=== PATIENT | female | born 1945 | race Caucasian/White ===

== ENCOUNTER 2017-01-17 08:57 | Observation (INO) ==
--- NOTE | 2017-01-17 09:27 | Emergency Department Note ---
Disposition Clinical Impression: TIA (transient ischemic attack) Qualifiers: Transient cerebral ischemia type: unspecified Qualified Code(s): G45.9 - Transient cerebral ischemic attack, unspecified Disposition: Admitted As Inpatient Condition: Good Referrals: Adelaide Brooks CNP [Primary Care Provider] - Forms: ED Satisfaction Letter Time of Disposition: 11:08 Fall HPI - General Chief Complaint: ED Fall Stated Complaint: Fall Time Seen by Provider: 01/17/17 09:04 Source: patient Nursing Notes Reviewed: Yes Vital Signs Reviewed: Yes - History of Present Illness HPI Narrative: 71-year-old female complains of fall. She states she awoken approximately 2 hours prior to arrival, she describes attempting to grab her phone, but states her left hand felt weak and numb. She also states her right hand felt weak. She attempted to get out of bed, but had difficulty walking. She describes gradually falling to the ground. She states her legs felt week but she was able to slide herself over. She describes a down time around 1 hour. She denies any injury to her head, loss of consciousness, near syncopal symptoms. She was able to contact a family member, who had called the squad. Patient states her symptoms were accompanied with some slurred speech. - Related Data Home Medications Medication Instructions Recorded Confirmed Albuterol Sulfate [Albuterol 1 puff IH Q4HR PRN 01/17/17 01/17/17 Inhaler] Calcium Carbonate [Calcium] 500 mg PO BID 01/17/17 01/17/17 Cholecalciferol (D-3) [Vitamin D] 1,000 unit PO BID 01/17/17 01/17/17 Etodolac [Lodine] 400 mg PO DAILY 01/17/17 01/17/17 Lansoprazole [Prevacid] 15 mg PO BID 01/17/17 01/17/17 Mv,Iron,Min/Folic Acid/Biotin 1 each PO BID 01/17/17 01/17/17 [Hair Formula Tablet] Oxygen 2 l NS AD 01/17/17 01/17/17 metroNIDAZOLE [Flagyl] 500 mg PO BID 01/17/17 01/17/17 Allergies Allergy/AdvReac Type Severity Reaction Status Date / Time Penicillins [PCN] Allergy Hives Verified 01/17/17 09:02 albuterol AdvReac Difficulty Verified 01/17/17 09:02 Breathing ciprofloxacin [From Cipro] AdvReac neuropathy Verified 01/17/17 11:05 codeine AdvReac See Verified 01/17/17 11:05 Comments pregabalin [From Lyrica] AdvReac See Verified 01/17/17 11:05 Comments Sulfa (Sulfonamide AdvReac Swelling Verified 01/17/17 09:02 Antibiotics) of Lip/Tongue/Throat All systems ED: reviewed and negative except as stated. Constitutional: Denies: fever, chills Eyes: Denies: eye discharge ENT ED: Denies: throat pain Cardiovascular: Denies: chest pain, palpitations Respiratory: Denies: dyspnea, wheezes Gastrointestinal: Denies: abdominal pain, nausea, vomiting Genitourinary: Denies: dysuria Musculoskeletal: Reports: as per HPI. Denies: back pain, neck pain Neurological: Denies: as per HPI Psychiatric: Denies: anxiety, depression Endocrine: Denies: fatigue Hematological/Lymphatic: Denies: easy bleeding Allergic/Immunologic: Denies: facial swelling Fall PMH - Past Medical History Medical history: Reports: COPD, GERD Psychiatric history: Reports: anxiety, depression [employer] history: Reports: bilateral tubal ligation - Social History Smoking Status: Current every day smoker Alcohol use: Reports: none Drug use: Reports: none Physical Exam - General Limitations: no limitations General appearance: alert, in no apparent distress - Head Head exam: atraumatic, normocephalic - Eye Eye exam: Present: normal appearance, EOMI, conjunctival injection - ENT ENT exam: normal exam, normal oropharynx, normal external ear exam - Neck Neck exam: Present: normal inspection, full ROM. Absent: tenderness - Chest Chest inspection: Present: normal inspection, symmetric chest wall rise - Respiratory Respiratory exam: Present: normal lung sounds bilaterally. Absent: respiratory distress - Cardiovascular Cardiovascular exam: Present: regular rate, normal rhythm - Abdominal Exam Abdominal exam: Present: soft, Non-Tender - Extremities Exam Extremities exam: Present: full ROM, normal capillary refill. Absent: tenderness, pedal edema, joint swelling - Expanded Lower Extremity Exam Knee exam: Present: abrasion Neurovascular/Tendon exam: Present: normal capillary refill, normal fine/light touch. Absent: pulse deficit Gait: not tested/not observed - Back Exam Back exam: Present: normal inspection, full ROM. Absent: tenderness - Neurological Exam Neurological exam: Present: alert, oriented X3 - Expanded Neurological Exam Patient oriented to: Present: person, place, time Speech: Present: fluid speech Cranial nerves: EOM function (II, III, IV, ): Normal, facial sensation (V): Normal, facial palsy (VII): Normal, gag reflex (IX): Normal, spinal accessory function (XI): Normal, tongue deviation (XII): Normal Cerebellar function: finger to nose: Normal, heel to pires: Normal Motor strength - LUE: 5/5 Motor strength - RUE: 5/5 Motor strength - LLE: 5/5 Motor strength - RLE: 5/5 Upper motor neuron exam: pronator drift: Absent bilaterally, sensory extinction : Absent bilaterally Sensory exam upper extremity: light touch: Normal, pin prick: Normal Sensory exam lower extremity: light touch: Normal, pin prick: Normal Spinal cord function: Absent: saddle anesthesia Coma Scale Eye Opening: Spontaneous Coma Scale Motor Response: Obeys Commands Coma Scale Verbal Response: Oriented Coma Scale Total: 15 - Psychiatric Psychiatric exam: Present: normal affect, normal mood - Skin Skin exam: Present: warm, dry, intact, normal color. Absent: rash, cyanosis, diaphoresis Course Course Narrative: 71-year-old female arrives via squad from home with reported fall, and reported left-sided numbness and weakness, tremor also accompanied with some slurred speech. Patient seen and examined. She states her symptoms are improving. She also mentions recent antibiotic use. Her PCP for a possible UTI or vaginal infection. On examination, she has no facial asymmetry, speech normal. No gross focal neurological deficits. Good strength in all 4 extremities, no sensory deficits in extremities or face, no facial weakness, no pronator drift, finger to nose testing and [id number] testing normal. Workup initiated. Discussed patient with Dr. Torres, who agreed with CT scan, possible TIA, decision to place. - Reevaluation(s) Reevaluation #1: Labs and head CT unremarkable. Pt continues to be asymptomatic. Urine pending. Discussed and reviewed work up with Dr. Torres, who advised admission. Time: 10:55 Reevaluation #2: Pt discussed with and accepted by hospitalist Dr. Narvaez. Time: 10:59 Vital Signs Temperature 97.8 F 01/17/17 09:02 Pulse Rate 84 01/17/17 09:02 Respiratory Rate 16 06/21/17 09:02 Blood Pressure 113/54 01/17/17 09:02 O2 Sat by Pulse Oximetry 98 01/17/17 09:02 Temperature 97.8 F 01/17/17 09:02 Pulse Rate 75 01/17/17 12:03 Respiratory Rate 16 01/17/17 12:03 Blood Pressure 101/43 01/17/17 12:03 O2 Sat by Pulse Oximetry 99 01/17/17 12:03 Oxygen Delivery Oxygen Delivery Nasal Cannula Fall - MDM Narrative Medical decision making narrative: Patient is a 71-year-old female that presented with complaints of a fall, which she described as being caused by weakness. She described her left hand feeling numb and weak, her right hand feeling numb, and weakness in her legs. She had described gradually falling to the ground immediately after attempting to get out of bed. Patient denied any near syncopal symptoms, loss of consciousness, injury to her head or neck. On examination she is alert and oriented 3, head and face atraumatic, no cervical thoracic or lumbar pain. She had no gross focal neurological deficits, facial asymmetry, speech changes. I saw no concerning signs for stroke. Vitals are stable. I did discuss patient with Dr. Cantu who did see patient, and advised for admission for possible TIA. Patient was discussed with hospitalist who agreed to accept patient. Chest X-Ray 01/17/17 09:26 IMPRESSION: No acute process. Emphysematous change. D/ / Per Gaston MD / Per Gaston MD Interpreting Provider: Per Gaston MD Head CT 01/17/17 09:45 IMPRESSION: No acute intracranial abnormality. Mild chronic small vessel ischemic changes. D/ / 01/17/2017 11:01:22 Petra Peoples MD / [place] Interpreting Provider: Petra Peoples MD All Lab Results (24 Hours) 01/17/17 01/17/17 01/17/17 Range/Units 09:40 09:40 09:40 WBC 9.3 (4.3-11.1) K/mcL RBC 4.26 (3.82-4.97) M/mcL Hgb 11.6 (11.5-15.4) g/dL Hct 37.2 (35.3-44.9) % MCV 87.3 (83.0-100.0) fL MCH 27.2 L (28.0-33.3) pg MCHC 31.2 L (31.6-35.5) g/dL RDW 13.1 (11.5-14.5) % Plt Count 217 (140-400) K/mcL MPV 11.2 (9.4-12.4) fL Immature Gran % 0.3 (0-4) % Seg Neutrophils % 62.2 % Lymphocytes % 27.1 % Monocytes % 7.2 % Eosinophils % 2.6 % Basophils % 0.6 % Neutrophils # 5.8 (1.6-8.9) K/mcL Lymphocytes # 2.5 (0.6-4.6) K/mcL Monocytes # 0.7 (0.0-1.3) K/mcL Eosinophils # 0.2 (0.0-0.6) K/mcL Basophils # 0.1 (0.0-0.2) K/mcL Immature Plt Fraction 8.3 H (1.1-6.1) % PT 12.6 H (9.4-12.1) Seconds INR 1.2 APTT 30.7 (26.0-36.0) Seconds Sodium 140 (136-145) mEq/L Potassium 4.6 H (3.5-4.5) mEq/L Chloride 107 (98-109) mEq/L Carbon Dioxide 27 (19-29) mEq/L BUN 11 (7-20) mg/dL Creatinine 0.78 (0.57-1.11) mg/dL Est GFR ( Amer) > 60 (> 60) Est GFR (Non-Af Amer) > 60 (> 60) BUN/Creatinine Ratio 14 (6-26) Glucose 102 H (70-99) mg/dL Calculated Osmolality 290 (280-300) Calcium 8.6 (8.6-10.8) mg/dL Creatine Kinase 54 (29-168) Units/L Troponin I (0-0.03) ng/mL Urine Color (Yellow) Urine Clarity (Clear) Urine pH (5.0-8.0) pH Units Ur Specific [place] (1.010-1.025) Urine Protein (Neg-Trace) mg/dL Urine Glucose (UA) (Normal) mg/dL Urine Ketones (Negative) mg/dL Urine Blood (Negative) Urine Nitrite (Negative) Urine Bilirubin (Negative) Urine Urobilinogen (Normal) mg/dL Ur Leukocyte Esterase (Negative) Ur Culture Indicated? (NO) 01/17/17 01/17/17 Range/Units 09:40 10:45 WBC (4.3-11.1) K/mcL RBC (3.82-4.97) M/mcL Hgb (11.5-15.4) g/dL Hct (35.3-44.9) % MCV (83.0-100.0) fL MCH (28.0-33.3) pg MCHC (31.6-35.5) g/dL RDW (11.5-14.5) % Plt Count (140-400) K/mcL MPV (9.4-12.4) fL Immature Gran % (0-4) % Seg Neutrophils % % Lymphocytes % % Monocytes % % Eosinophils % % Basophils % % Neutrophils # (1.6-8.9) K/mcL Lymphocytes # (0.6-4.6) K/mcL Monocytes # (0.0-1.3) K/mcL Eosinophils # (0.0-0.6) K/mcL Basophils # (0.0-0.2) K/mcL Immature Plt Fraction (1.1-6.1) % PT (9.4-12.1) Seconds INR APTT (26.0-36.0) Seconds Sodium (136-145) mEq/L Potassium (3.5-4.5) mEq/L Chloride (98-109) mEq/L Carbon Dioxide (19-29) mEq/L BUN (7-20) mg/dL Creatinine (0.57-1.11) mg/dL Est GFR ( Amer) (> 60) Est GFR (Non-Af Amer) (> 60) BUN/Creatinine Ratio (6-26) Glucose (70-99) mg/dL Calculated Osmolality (280-300) Calcium (8.6-10.8) mg/dL Creatine Kinase (29-168) Units/L Troponin I 0.01 (0-0.03) ng/mL Urine Color Yellow (Yellow) Urine Clarity Clear (Clear) Urine pH 6.5 (5.0-8.0) pH Units Ur Specific [place] 1.011 (1.010-1.025) Urine Protein Negative (Neg-Trace) mg/dL Urine Glucose (UA) Normal (Normal) mg/dL Urine Ketones Negative (Negative) mg/dL Urine Blood Negative (Negative) Urine Nitrite Negative (Negative) Urine Bilirubin Negative (Negative) Urine Urobilinogen Normal (Normal) mg/dL Ur Leukocyte Esterase Negative (Negative) Ur Culture Indicated? NO (NO) All Lab Results (24 Hours) 01/17/17 01/17/17 01/17/17 Range/Units 09:40 09:40 09:40 WBC 9.3 (4.3-11.1) K/mcL RBC 4.26 (3.82-4.97) M/mcL Hgb 11.6 (11.5-15.4) g/dL Hct 37.2 (35.3-44.9) % MCV 87.3 (83.0-100.0) fL MCH 27.2 L (28.0-33.3) pg MCHC 31.2 L (31.6-35.5) g/dL RDW 13.1 (11.5-14.5) % Plt Count 217 (140-400) K/mcL MPV 11.2 (9.4-12.4) fL Immature Gran % 0.3 (0-4) % Seg Neutrophils % 62.2 % Lymphocytes % 27.1 % Monocytes % 7.2 % Eosinophils % 2.6 % Basophils % 0.6 % Neutrophils # 5.8 (1.6-8.9) K/mcL Lymphocytes # 2.5 (0.6-4.6) K/mcL Monocytes # 0.7 (0.0-1.3) K/mcL Eosinophils # 0.2 (0.0-0.6) K/mcL Basophils # 0.1 (0.0-0.2) K/mcL Immature Plt Fraction 8.3 H (1.1-6.1) % PT 12.6 H (9.4-12.1) Seconds INR 1.2 APTT 30.7 (26.0-36.0) Seconds Sodium 140 (136-145) mEq/L Potassium 4.6 H (3.5-4.5) mEq/L Chloride 107 (98-109) mEq/L Carbon Dioxide 27 (19-29) mEq/L BUN 11 (7-20) mg/dL Creatinine 0.78 (0.57-1.11) mg/dL Est GFR ( Amer) > 60 (> 60) Est GFR (Non-Af Amer) > 60 (> 60) BUN/Creatinine Ratio 14 (6-26) Glucose 102 H (70-99) mg/dL Calculated Osmolality 290 (280-300) Calcium 8.6 (8.6-10.8) mg/dL Creatine Kinase 54 (29-168) Units/L Troponin I (0-0.03) ng/mL Urine Color (Yellow) Urine Clarity (Clear) Urine pH (5.0-8.0) pH Units Ur Specific [place] (1.010-1.025) Urine Protein (Neg-Trace) mg/dL Urine Glucose (UA) (Normal) mg/dL Urine Ketones (Negative) mg/dL Urine Blood (Negative) Urine Nitrite (Negative) Urine Bilirubin (Negative) Urine Urobilinogen (Normal) mg/dL Ur Leukocyte Esterase (Negative) Ur Culture Indicated? (NO) 01/17/17 01/17/17 Range/Units 09:40 10:45 WBC (4.3-11.1) K/mcL RBC (3.82-4.97) M/mcL Hgb (11.5-15.4) g/dL Hct (35.3-44.9) % MCV (83.0-100.0) fL MCH (28.0-33.3) pg MCHC (31.6-35.5) g/dL RDW (11.5-14.5) % Plt Count (140-400) K/mcL MPV (9.4-12.4) fL Immature Gran % (0-4) % Seg Neutrophils % % Lymphocytes % % Monocytes % % Eosinophils % % Basophils % % Neutrophils # (1.6-8.9) K/mcL Lymphocytes # (0.6-4.6) K/mcL Monocytes # (0.0-1.3) K/mcL Eosinophils # (0.0-0.6) K/mcL Basophils # (0.0-0.2) K/mcL Immature Plt Fraction (1.1-6.1) % PT (9.4-12.1) Seconds INR APTT (26.0-36.0) Seconds Sodium (136-145) mEq/L Potassium (3.5-4.5) mEq/L Chloride (98-109) mEq/L Carbon Dioxide (19-29) mEq/L BUN (7-20) mg/dL Creatinine (0.57-1.11) mg/dL Est GFR ( Amer) (> 60) Est GFR (Non-Af Amer) (> 60) BUN/Creatinine Ratio (6-26) Glucose (70-99) mg/dL Calculated Osmolality (280-300) Calcium (8.6-10.8) mg/dL Creatine Kinase (29-168) Units/L Troponin I 0.01 (0-0.03) ng/mL Urine Color Yellow (Yellow) Urine Clarity Clear (Clear) Urine pH 6.5 (5.0-8.0) pH Units Ur Specific [place] 1.011 (1.010-1.025) Urine Protein Negative (Neg-Trace) mg/dL Urine Glucose (UA) Normal (Normal) mg/dL Urine Ketones Negative (Negative) mg/dL Urine Blood Negative (Negative) Urine Nitrite Negative (Negative) Urine Bilirubin Negative (Negative) Urine Urobilinogen Normal (Normal) mg/dL Ur Leukocyte Esterase Negative (Negative) Ur Culture Indicated? NO (NO) - Lab Data Lab results reviewed: Yes I reviewed the patient's lab results. Result diagrams: 01/17/17 09:40 01/17/17 09:40 Lab Results 01/17/17 01/17/17 01/17/17 Range/Units 09:40 09:40 09:40 WBC 9.3 (4.3-11.1) K/mcL RBC 4.26 (3.82-4.97) M/mcL Hgb 11.6 (11.5-15.4) g/dL Hct 37.2 (35.3-44.9) % MCV 87.3 (83.0-100.0) fL MCH 27.2 L (28.0-33.3) pg MCHC 31.2 L (31.6-35.5) g/dL RDW 13.1 (11.5-14.5) % Plt Count 217 (140-400) K/mcL MPV 11.2 (9.4-12.4) fL Immature Gran % 0.3 (0-4) % Seg Neutrophils % 62.2 % Lymphocytes % 27.1 % Monocytes % 7.2 % Eosinophils % 2.6 % Basophils % 0.6 % Neutrophils # 5.8 (1.6-8.9) K/mcL Lymphocytes # 2.5 (0.6-4.6) K/mcL Monocytes # 0.7 (0.0-1.3) K/mcL Eosinophils # 0.2 (0.0-0.6) K/mcL Basophils # 0.1 (0.0-0.2) K/mcL Immature Plt Fraction 8.3 H (1.1-6.1) % PT 12.6 H (9.4-12.1) Seconds INR 1.2 APTT 30.7 (26.0-36.0) Seconds Sodium 140 (136-145) mEq/L Potassium 4.6 H (3.5-4.5) mEq/L Chloride 107 (98-109) mEq/L Carbon Dioxide 27 (19-29) mEq/L BUN 11 (7-20) mg/dL Creatinine 0.78 (0.57-1.11) mg/dL Est GFR ( Amer) > 60 (> 60) Est GFR (Non-Af Amer) > 60 (> 60) BUN/Creatinine Ratio 14 (6-26) Glucose 102 H (70-99) mg/dL Calculated Osmolality 290 (280-300) Calcium 8.6 (8.6-10.8) mg/dL Creatine Kinase 54 (29-168) Units/L Troponin I (0-0.03) ng/mL Urine Color (Yellow) Urine Clarity (Clear) Urine pH (5.0-8.0) pH Units Ur Specific [place] (1.010-1.025) Urine Protein (Neg-Trace) mg/dL Urine Glucose (UA) (Normal) mg/dL Urine Ketones (Negative) mg/dL Urine Blood (Negative) Urine Nitrite (Negative) Urine Bilirubin (Negative) Urine Urobilinogen (Normal) mg/dL Ur Leukocyte Esterase (Negative) Ur Culture Indicated? (NO) 01/17/17 01/17/17 Range/Units 09:40 10:45 WBC (4.3-11.1) K/mcL RBC (3.82-4.97) M/mcL Hgb (11.5-15.4) g/dL Hct (35.3-44.9) % MCV (83.0-100.0) fL MCH (28.0-33.3) pg MCHC (31.6-35.5) g/dL RDW (11.5-14.5) % Plt Count (140-400) K/mcL MPV (9.4-12.4) fL Immature Gran % (0-4) % Seg Neutrophils % % Lymphocytes % % Monocytes % % Eosinophils % % Basophils % % Neutrophils # (1.6-8.9) K/mcL Lymphocytes # (0.6-4.6) K/mcL Monocytes # (0.0-1.3) K/mcL Eosinophils # (0.0-0.6) K/mcL Basophils # (0.0-0.2) K/mcL Immature Plt Fraction (1.1-6.1) % PT (9.4-12.1) Seconds INR APTT (26.0-36.0) Seconds Sodium (136-145) mEq/L Potassium (3.5-4.5) mEq/L Chloride (98-109) mEq/L Carbon Dioxide (19-29) mEq/L BUN (7-20) mg/dL Creatinine (0.57-1.11) mg/dL Est GFR ( Amer) (> 60) Est GFR (Non-Af Amer) (> 60) BUN/Creatinine Ratio (6-26) Glucose (70-99) mg/dL Calculated Osmolality (280-300) Calcium (8.6-10.8) mg/dL Creatine Kinase (29-168) Units/L Troponin I 0.01 (0-0.03) ng/mL Urine Color Yellow (Yellow) Urine Clarity Clear (Clear) Urine pH 6.5 (5.0-8.0) pH Units Ur Specific [place] 1.011 (1.010-1.025) Urine Protein Negative (Neg-Trace) mg/dL Urine Glucose (UA) Normal (Normal) mg/dL Urine Ketones Negative (Negative) mg/dL Urine Blood Negative (Negative) Urine Nitrite Negative (Negative) Urine Bilirubin Negative (Negative) Urine Urobilinogen Normal (Normal) mg/dL Ur Leukocyte Esterase Negative (Negative) Ur Culture Indicated? NO (NO) - Radiology Data Radiology results reviewed: Yes I reviewed the patient's radiology results. Emphysematous changes, otherwise no acute cardiopulmonary concerns - EKG Data EKG attestation: Yes I reviewed and interpreted this EKG. EKG results narrative: Sinus rhythm, normal EKG, no ST changes, or signs of acute ischemia
[2017-01-17 09:55] LABS: Basophils # 0.1 K/mcL (0.0-0.2); Basophils % 0.6 %; Eosinophils # 0.2 K/mcL (0.0-0.6); Eosinophils % 2.6 %; Hematocrit 37.2 % (35.3-44.9); Hemoglobin 11.6 g/dL (11.5-15.4); Immature Granulocytes % 0.3 % (0-4); Immature Platelets 8.3 % (1.1-6.1); Lymphocytes # 2.5 K/mcL (0.6-4.6); Lymphocytes % 27.1 %; Mean Corpuscular HGB Conc 31.2 g/dL (31.6-35.5); Mean Corpuscular Hemoglobin 27.2 pg (28.0-33.3); Mean Corpuscular Volume 87.3 fL (83.0-100.0); Mean Platelet Volume 11.2 fL (9.4-12.4); Monocytes # 0.7 K/mcL (0.0-1.3); Monocytes % 7.2 %; Neutrophils # 5.8 K/mcL (1.6-8.9); Platelet Count 217 K/mcL (140-400); Red Blood Count 4.26 M/mcL (3.82-4.97); Red Cell Distribution Width 13.1 % (11.5-14.5); Segmented Neutrophils % 62.2 %
[2017-01-17 09:59] LABS: INR 1.2; Prothrombin Time 12.6 Seconds (9.4-12.1)
[2017-01-17 10:01] LABS: Activated Partial Thrombo Time 30.7 Seconds (26.0-36.0)
[2017-01-17 10:06] LABS: BUN/Creatinine Ratio 14 (6-26); Blood Urea Nitrogen 11 mg/dL (7-20); Calcium 8.6 mg/dL (8.6-10.8); Carbon Dioxide 27 mEq/L (19-29); Chloride 107 mEq/L (98-109); Creatine Kinase 54 Units/L (29-168); Glucose 102 mg/dL (70-99); Osmolality,Calculated 290 (280-300); Potassium 4.6 mEq/L (3.5-4.5); Sodium 140 mEq/L (136-145); eGFR For African Americans > 60 (> 60); eGFR For Non-African Americans > 60 (> 60)
[2017-01-17 10:54] LABS: Bilirubin,Urine Negative (Negative); Blood,Urine Negative (Negative); Color,Urine Yellow (Yellow); Glucose,Urine (UA) Normal (Normal); Ketones,Urine Negative (Negative); Leukocyte Esterase,Urine Negative (Negative); Nitrite,Urine Negative (Negative); PH,Urine 6.5 pH Units (5.0-8.0); Protein,Urine Negative (Neg-Trace); Specific Gravity,Urine 1.011 (1.010-1.025); Urobilinogen,Urine Normal (Normal)
[2017-01-17 11:07] LABS: Clarity,Urine Clear (Clear)
[2017-01-17] MEDS ORDERED: Naloxone 0.4 MG/ML INJ IVP PRN (12:03)
[2017-01-17] MEDS ORDERED: Acetaminophen 325 MG TABLET PO PRN (12:03)
[2017-01-17] MEDS ORDERED: Aspirin 325 MG TABLET PO ONE (12:07)
--- NOTE | 2017-01-17 12:15 | Internal Med History&Physical ---
<Perez,Donna J - Last Filed: 01/17/17 12:11> Date of Encounter: 01/17/17 Time of Encounter: 12:11 Assessment and Plan (1) Paresthesia of arm Current visit: Yes Status: Acute To left hand that started on day of admission, unable to grasp phone. Symptoms improving in the ED, still with subtle left hand weakness. Head CT negative. Concerned for possible TIA, start ASA now in the ED. Brain MRI, echo, bilateral carotid Dopplers pending. Lipid panel, Hgb A1c, and TSH pending Consult neurology if needed. (2) Fall Current visit: Yes Status: Acute On day of admission. Denies hitting head. No evidence of tongue biting, denies loss of bowel or bladder incontinence. Head CT negative. Etiology unknown at this time. Brain MRI, echo, carotid Dopplers pending. Check orthostatic BPs Qualifiers: Encounter type: initial encounter Qualified Code(s): W19.XXXA - Unspecified fall, initial encounter (3) Murmur Current visit: Yes Status: Acute Noted on exam, echo pending. Consult cardiology if needed. (4) Bacterial vaginitis Current visit: Yes Status: Acute Recently diagnosed per PCP. Continue home Flagyl 500 mg twice a day for total of 7 days (stop date after last dose on 01/17/17) (5) COPD (chronic obstructive pulmonary disease) Current visit: Yes Status: Acute Per history, on home O2 PRN. Current smoker, cessation advised. Nicotine replacement while inpatient. Continue home inhaler, O2 PRN Qualifiers: COPD type: unspecified COPD Qualified Code(s): J44.9 - Chronic obstructive pulmonary disease, unspecified (6) DVT prophylaxis Current visit: Yes Status: Acute Heparin Internal Medicine - H&P: HPI Chief complaint: fall and left hand weakness Admitted From: Home History of present illness: Ms. Panchal is a 71 year old female with past medical history COPD who presented to [facility] on 01/17/2017 after falling at home with complaint of left hand weakness. She was placed in observation status for CVA workup. Information obtained from chart review and patient report. Patient says she woke up this morning and twas unable to grasp per phone with her left hand. Says left hand was weak, denies numbness or tingling. She then proceeded to get out of bed and fell says her legs are weak and gave out on her. Denies hitting head. No headache or vision changes. Says she feels better now, but still weak and tired. No chest pain no shortness of breath no abdominal pain. Past Med Surg Social Fam HX - Past Medical History Medical history: COPD, GERD Psychiatric history: anxiety, depression - Past Surgical History Surgical History: non-contributory - Social History Smoking Status: Current every day smoker Smokeless Tobacco Status: No Alcohol use: none Drug use: none - Additional Family History Additional family history: Reviewed and noncontributory Internal Medicine - H&P: Meds Albuterol Sulfate [Albuterol Inhaler] 1 puff IH Q4HR PRN 01/17/17 [History] Calcium Carbonate [Calcium] 500 mg PO BID 01/17/17 [History] Cholecalciferol (D-3) [Vitamin D] 1,000 unit PO BID 01/17/17 [History] Etodolac [Lodine] 400 mg PO DAILY 01/17/17 [History] Lansoprazole [Prevacid] 15 mg PO BID 01/17/17 [History] Mv,Iron,Min/Folic Acid/Biotin [Hair Formula Tablet] 1 each PO BID 01/17/17 [ History] Oxygen 2 l NS AD 01/17/17 [History] metroNIDAZOLE [Flagyl] 500 mg PO BID 01/17/17 [History] Allergies Penicillins [PCN] Allergy (Verified 01/17/17 09:02) Hives albuterol Adverse Reaction (Verified 01/17/17 09:02) Difficulty Breathing ciprofloxacin [From Cipro] Adverse Reaction (Verified 01/17/17 11:05) neuropathy codeine Adverse Reaction (Verified 01/17/17 11:05) See Comments jittery and wired pregabalin [From Lyrica] Adverse Reaction (Verified 01/17/17 11:05) See Comments had a seizure Sulfa (Sulfonamide Antibiotics) Adverse Reaction (Verified 01/17/17 09:02) Swelling of Lip/Tongue/Throat All Systems PM: A 10-system review of systems was performed and is negative for pertinent findings except as documented above in the HPI. - Constitutional Constitutional: weakness, no chills, no fever(s), no night sweats - EENT Eyes: no change in vision, no discharge, no pain, no photophobia Ears: no ear discharge, no ear pain, no tinnitus Nose, mouth and throat: no dysphagia, no nasal discharge, no neck pain, no sore throat - Cardiovascular Cardiovascular ROS IM: no chest pain, no diaphoresis, no dyspnea, no lightheadedness, no palpitations, no syncope - Respiratory Respiratory: no cough, no dyspnea, no wheezing, no excessive phlegm production - Gastrointestinal Gastrointestinal: no abdominal pain, no diarrhea, no hematemesis, no hematochezia, no melena, no nausea, no vomiting - Genitourinary Genitourinary: no change in urinary stream, no dysuria, no flank pain, no hematuria - Musculoskeletal Musculoskeletal ROS IM: no numbness, no tingling - Integumentary Integumentary IM: no rash, no unusual bruising - Neurological Neurological ROS: abnormal gait, paresthesias, no confusion, no convulsions, no focal weakness, no numbness, no tingling, no tremor(s) - Hematologic/Lymphatic Hematologic/Lymphatic: no easy bruising - Constitutional Vitals: Temp Pulse Resp BP Pulse Ox 97.8 F 75 16 101/43 99 01/17/17 09:02 01/17/17 12:03 01/17/17 12:03 01/17/17 12:03 01/17/17 12:03 General appearance: Present: A&O X 3, no acute distress - Head Head exam: Present: atraumatic, normocephalic - Eye Eye exam: Present: PERRL, conjuntiva pink, sclera anicteric Pupils: Present: PERRL - Neck Neck exam general surgery: Present: supple, trachea midline. Absent: lymphadenopathy - Respiratory Respiratory exam: Present: CTAB. Absent: accessory muscle use, rales, rhonchi, wheezes - Cardiovascular Cardiovascular exam: Present: RRR, +S1, +S2, systolic murmur. Absent: diastolic murmur, gallop, rubs - GI/Abdominal GI/Abdominal exam: Present: normal bowel sounds, soft, no peritoneal signs. Absent: distended, tenderness - Extremities Exam Extremities exam: Present: warm, radial pulses palpable and symetrical. Absent : calf tenderness, cyanotic, pedal edema - Neurological Exam Neurological exam: Present: CN II-XII intact, oriented X3, no focal deficits. Absent: strengths equal and symetr throughout, pronater drift, facial droop, speech deficit Additional comments: Left hand weakness, strength 4/5 - Skin Skin exam: Present: dry, intact Internal Med - H&P Results - Labs CBC & Chem 7: 01/17/17 09:40 01/17/17 09:40 Labs: Short CBC 01/17/17 Range/Units 09:40 WBC 9.3 (4.3-11.1) K/mcL Hgb 11.6 (11.5-15.4) g/dL Hct 37.2 (35.3-44.9) % Plt Count 217 (140-400) K/mcL Neutrophils # 5.8 (1.6-8.9) K/mcL BMP 01/17/17 09:40 Sodium 140 Potassium 4.6 H Chloride 107 Carbon Dioxide 27 BUN 11 Creatinine 0.78 Glucose 102 H Calcium 8.6 Cardiac Enzymes 01/17/17 Range/Units 09:40 Troponin I 0.01 (0-0.03) ng/mL Urine 01/17/17 Range/Units 10:45 Urine Color Yellow (Yellow) Urine Clarity Clear (Clear) Urine pH 6.5 (5.0-8.0) pH Units Ur Specific [place] 1.011 (1.010-1.025) Urine Protein Negative (Neg-Trace) mg/dL Urine Glucose (UA) Normal (Normal) mg/dL - Impressions ITS Impressions Chest X-Ray 01/17/17 09:26 IMPRESSION: No acute process. Emphysematous change. D/ / Per Gaston MD / Per Gaston MD Interpreting Provider: Per Gaston MD Head CT 01/17/17 09:45 IMPRESSION: No acute intracranial abnormality. Mild chronic small vessel ischemic changes. D/ / 01/17/2017 11:01:22 Petra Peoples MD / [place] Interpreting Provider: Petra Peoples MD <Priscilla Narvaez - Last Filed: 01/17/17 19:11> Date of Encounter: 01/17/17 Time of Encounter: 15:45 Internal Medicine - H&P: HPI History of present illness: Ms. Panchal is a 71 year old female Past Med Surg Social Fam HX - Family History Daughter History Unknown: Yes Family Member Ethnicity: Non- Living Status: Still Living Hx Family Cardiac Disorders: No Hx Family Respiratory Disorders: Yes Hx Family Cancer: No Hx Family GI Disorders: Yes (Gallbladder, diverticulitis) All Systems PM: A 10-system review of systems was performed and is negative for pertinent findings except as documented above in the HPI. - Constitutional Vitals: Temp Pulse Resp BP Pulse Ox 97.8 F 73 16 112/65 99 01/17/17 14:39 01/17/17 14:50 01/17/17 14:50 01/17/17 14:50 01/17/17 14:50 Internal Med - H&P Results - Labs CBC & Chem 7: 01/17/17 09:40 01/17/17 09:40 - Attending Attestation I examined this patient and my medical decision-making was reviewed with the nurse practitioner. I agree with the documented history of present illness, review of systems, past medical, surgical social and family histories and examination findings, disposition and treatment plan as described above except to any changes set forth below. Patient relates a history of COPD, GERD presented with some left arm paresthesia and lower extremity weakness. We will observe in hospital and workup for possible TIA. MRI of the brain. Carotid Dopplers. 2-D echocardiogram. Monitor vital signs and neuro checks.
[2017-01-17] MEDS: Nicotine 21 MG PATCH.TD24 TD SCH (12:16)
[2017-01-17] MEDS ORDERED: *HR* Heparin 5,000 UNIT/ML VIAL SQ ONE (12:26)
[2017-01-17] MEDS: metroNIDAZOLE 500 MG TABLET PO SCH ×2 (15:44→21:31)
--- NOTE | 2017-01-17 18:03 | Electrocardiograph Report ---
[place] [id number] Test Date: 2017-01-17 Pat Name: Aria Panchal Department: 105 Room: [facility] Gender: F Enrollment Consultant: : 1945 Requested By: Sudeep Hercules Order Number: [id number] Reading MD: Kashif Rowe MD Measurements Intervals [place] Rate: 82 P: 61 TX: 141 QRS: 69 QRSD: 81 T: 64 QT: 372 QTc: 411 Interpretive Statements SINUS RHYTHM Electronically Signed On 01-17-2017 18:02:11 EDT by Kashif Rowe MD
[2017-01-17] MEDS ORDERED: Nicotine 21 MG PATCH.TD24 TD STA (21:21)
[2017-01-18 05:21] LABS: Basophils # 0.1 K/mcL (0.0-0.2); Basophils % 0.7 %; Eosinophils # 0.3 K/mcL (0.0-0.6); Eosinophils % 3.1 %; Hematocrit 34.3 % (35.3-44.9); Immature Granulocytes % 0.2 % (0-4); Lymphocytes # 3.2 K/mcL (0.6-4.6); Lymphocytes % 35.5 %; Mean Corpuscular HGB Conc 32.1 g/dL (31.6-35.5); Mean Corpuscular Hemoglobin 27.8 pg (28.0-33.3); Mean Corpuscular Volume 86.8 fL (83.0-100.0); Mean Platelet Volume 11.7 fL (9.4-12.4); Monocytes # 0.7 K/mcL (0.0-1.3); Monocytes % 7.7 %; Neutrophils # 4.8 K/mcL (1.6-8.9); Platelet Count 198 K/mcL (140-400); Red Blood Count 3.95 M/mcL (3.82-4.97); Red Cell Distribution Width 13.1 % (11.5-14.5); Segmented Neutrophils % 52.8 %
[2017-01-18 05:40] LABS: Alanine Aminotransferase 10 Units/L (0-55); Albumin 3.1 g/dL (3.5-5.0); Albumin/Globulin Ratio 1.1 (1.1-2.2); Alkaline Phosphatase 74 Units/L (38-126); Aspartate Amino Transferase 25 Units/L (5-34); BUN/Creatinine Ratio 17 (6-26); Bilirubin,Total 0.2 mg/dL (0.2-1.2); Blood Urea Nitrogen 14 mg/dL (7-20); Calcium 8.7 mg/dL (8.6-10.8); Carbon Dioxide 27 mEq/L (19-29); Chloride 105 mEq/L (98-109); Chol/HDL Ratio 7.2 (0-4.9); Cholesterol 210 mg/dL (< 200); Globulin 2.8 g/dL (2.4-3.5); Glucose 99 mg/dL (70-99); HDL Cholesterol 29 mg/dL (40-59); LDL Cholesterol,Calculated 142 mg/dL (0-99); Osmolality,Calculated 291 (280-300); Sodium 140 mEq/L (136-145); Total Protein 5.9 g/dL (6.0-8.3); Triglycerides 194 mg/dL (< 150); eGFR For African Americans > 60 (> 60); eGFR For Non-African Americans > 60 (> 60)
--- NOTE | 2017-01-18 07:12 | Carotid Imaging Report ---
Carotid Duplex Patient Name:Aria Panchal Order Number:[id number] Procedure Date:01/17/2017 Date:1945ge:71 yrs Gender:Female Lt BP:112 / 50 mmHg Rt.BP:101 / 43 mmHgHeart Rate: Location:[facility] Room #: [id number] Manager Product Marketing:Beth Hercules Referring MD:Donna Perez CNP electrical cad designer:Adelaide Brooks CNP Reading MD:Laci Bloom MD Primary Indications:fall, ?TIA Risk Factors Yes/No Hypercholesterolemia Yes Smoking Current Yes Impressions: The bilateral carotid arteries have minimal plaque throughout. Recommendations: After imaging the patient returned to their room. Findings Carotid Duplex: Right: The right proximal common carotid artery has a PSV of 66 cm/s and a EDV of 11 cm/s. The right mid common carotid artery has a PSV of 67 cm/s and a EDV of 13 cm/s. The right distal common carotid artery has a PSV of 67 cm/s and a EDV of 17 cm/s. The right bifurcation has a PSV of 49 cm/s and a EDV of 9 cm/s. There is nonstenotic plaque in the right proximal internal carotid artery with a PSV of 87 cm/s and a EDV of 26 cm/s. The right mid internal carotid artery has a PSV of 62 cm/s and a EDV of 20 cm/s. The right distal internal carotid artery has a PSV of 67 cm/s and a EDV of 21 cm/s. The right eca has a PSV of 68 cm/s and a EDV of 6 cm/s. The right vertebral artery has a PSV of 60 cm/s and a EDV of 14 cm/s. Left: There is nonstenotic plaque in the left proximal common carotid artery with a PSV of 77 cm/s and a EDV of 15 cm/s. There is nonstenotic plaque in the left mid common carotid artery with a PSV of 90 cm/s and a EDV of 14 cm/s. There is nonstenotic plaque in the left distal common carotid artery with a PSV of 68 cm/s and a EDV of 10 cm/s. There is nonstenotic plaque in the left bifurcation with a PSV of 45 cm/s and a EDV of 10 cm/s. The left proximal internal carotid artery has a PSV of 71 cm/s and a EDV of 19 cm/s. The left mid internal carotid artery has a PSV of 84 cm/s and a EDV of 28 cm/s. The left distal internal carotid artery has a PSV of 91 cm/s and a EDV of 26 cm/s. The left eca has a PSV of 76 cm/s and a EDV of 7 cm/s. The left vertebral artery has a PSV of 35 cm/s and a EDV of 11 cm/s. Prior Study: No prior study available for comparison. Carotid Results Right PSV EDV Assessment Proximal CCA 66 11 Normal Mid CCA 67 13 Normal Distal CCA 67 17 Normal Bifurcation 49 9 Normal Proximal ICA 87 26 Non Stenotic Plaque Mid ICA 62 20 Normal Distal ICA 67 21 Normal ECA 68 6 Normal Vertebral Artery 60 14 Normal Left PSV EDV Assessment Proximal CCA 77 15 Non Stenotic Plaque Mid CCA 90 14 Non Stenotic Plaque Distal CCA 68 10 Non Stenotic Plaque Bifurcation 45 10 Non Stenotic Plaque Proximal ICA 71 19 Normal Mid ICA 84 28 Normal Distal ICA 91 26 Normal ECA 76 7 Normal Vertebral Artery 35 11 Normal Ratio's Right ICA/CCA Ratio: 1.30 ICA/CCA Values: 87/67 Left ICA/CCA Ratio: 1.01 ICA/CCA Values: 91/90 Updated by Laci Bloom MD on 01/18/2017 7:04:54 AM electronically signed on 01/18/2017 7:05:09 AM with status of Final
[2017-01-18] MEDS ORDERED: Aspirin Enteric Coated 81 MG Tablet PO SCH (09:00)
[2017-01-18] MEDS: Nicotine 21 MG PATCH.TD24 TD SCH (09:06)
[2017-01-18] MEDS: metroNIDAZOLE 500 MG TABLET PO SCH (09:10)
[2017-01-18 14:59] VITALS: BP 130/74
--- NOTE | 2017-01-18 15:54 | Internal Med Progress Note ---
Date of Encounter: 01/18/17 Time of Encounter: 15:52 - Assessment and plan (1) COPD (chronic obstructive pulmonary disease) Current Visit: No Status: Acute Qualifiers: COPD type: unspecified COPD Qualified Code(s): J44.9 - Chronic obstructive pulmonary disease, unspecified (2) DVT prophylaxis Current Visit: No Status: Acute (3) Fall Current Visit: Yes Status: Acute Qualifiers: Encounter type: initial encounter Qualified Code(s): W19.XXXA - Unspecified fall, initial encounter (4) Paresthesia of arm Current Visit: Yes Status: Acute (5) TIA (transient ischemic attack) Current Visit: Yes Status: Acute Qualifiers: Transient cerebral ischemia type: unspecified Qualified Code(s): G45.9 - Transient cerebral ischemic attack, unspecified - Subjective Interval history: Aria Panchal is a 71-year-old female came in with right upper extremity paresthesia. Admitting M.D. ordered MRI of the brain echocardiogram and ultrasound of the carotid all tests have returned negative. MRI brain showed small vessel disease while echocardiogram showed normal left ventricular function and EF about 55-60%. MRI did not show any new stroke. Patient is suitable candidate for aspirin 325 mg by mouth daily. Said aspirin Zocor also added as lipid profile is abnormal - Constitutional Vitals: Temp Pulse Resp BP Pulse Ox 98.8 F 88 16 130/74 97 01/18/17 14:57 01/18/17 14:57 01/18/17 14:57 01/18/17 14:57 01/18/17 14:57 General appearance: Present: A&O X 3, no acute distress - Head Head exam: Present: atraumatic, normocephalic - Eye Eye exam: Present: PERRL, conjuntiva pink, sclera anicteric Pupils: Present: PERRL - Neck Neck exam general surgery: Present: supple, trachea midline. Absent: lymphadenopathy - Respiratory Respiratory exam: Present: CTAB. Absent: accessory muscle use, rales, rhonchi, wheezes - Cardiovascular Cardiovascular exam: Present: RRR, +S1, +S2. Absent: diastolic murmur, gallop, rubs, systolic murmur - GI/Abdominal GI/Abdominal exam: Present: normal bowel sounds, soft, no peritoneal signs. Absent: distended, tenderness - Extremities Exam Extremities exam: Present: warm, radial pulses palpable and symetrical. Absent : calf tenderness, cyanotic, pedal edema - Neurological Exam Neurological exam: Present: CN II-XII intact, oriented X3, no focal deficits. Absent: pronater drift, facial droop, speech deficit - Skin Skin exam: Present: dry, intact Internal Medicine: Result - Labs CBC & Chem 7: 01/18/17 04:30 01/18/17 04:30 Labs: Short CBC 01/18/17 Range/Units 04:30 WBC 9.0 (4.3-11.1) K/mcL Hgb 11.0 L (11.5-15.4) g/dL Hct 34.3 L (35.3-44.9) % Plt Count 198 (140-400) K/mcL Neutrophils # 4.8 (1.6-8.9) K/mcL BMP 01/18/17 04:30 Sodium 140 Potassium 4.0 Chloride 105 Carbon Dioxide 27 BUN 14 Creatinine 0.82 Glucose 99 Calcium 8.7 Liver Function 01/18/17 Range/Units 04:30 Total Bilirubin 0.2 (0.2-1.2) mg/dL AST 25 (5-34) Units/L ALT 10 (0-55) Units/L Alkaline Phosphatase 74 (38-126) Units/L Albumin 3.1 L (3.5-5.0) g/dL - ABG Interpretation ABG results: PT/INR, D-dimer PT 12.6 Seconds (9.4-12.1) H 01/17/17 09:40 Consult Discharge Plan - Plan Referrals: Adelaide Brooks, RADHA [Primary Care Provider] -
--- NOTE | 2017-01-18 17:47 | Discharge Summary ---
Date of Encounter: 01/18/17 Time of Encounter: 17:44 - Discharge Diagnosis (1) COPD (chronic obstructive pulmonary disease) Priority: Secondary Status: Acute Qualifiers: COPD type: unspecified COPD Qualified Code(s): J44.9 - Chronic obstructive pulmonary disease, unspecified (2) DVT prophylaxis Priority: Secondary Status: Acute (3) Fall Priority: Secondary Status: Acute Qualifiers: Encounter type: initial encounter Qualified Code(s): W19.XXXA - Unspecified fall, initial encounter (4) Paresthesia of arm Priority: Primary Status: Acute (5) TIA (transient ischemic attack) Priority: Primary Status: Acute Qualifiers: Transient cerebral ischemia type: unspecified Qualified Code(s): G45.9 - Transient cerebral ischemic attack, unspecified - Discharge Medications Prescriptions: Simvastatin [Zocor] 40 mg PO HS #30 tablet Home Medications: Albuterol Sulfate [Albuterol Inhaler] 1 puff IH Q4HR PRN 01/17/17 [History] Calcium Carbonate [Calcium] 500 mg PO BID 01/17/17 [History] Cholecalciferol (D-3) [Vitamin D] 1,000 unit PO BID 01/17/17 [History] Etodolac [Lodine] 400 mg PO DAILY 01/17/17 [History] Lansoprazole [Prevacid] 15 mg PO BID 01/17/17 [History] Mv,Iron,Min/Folic Acid/Biotin [Hair Formula Tablet] 1 each PO BID 01/17/17 [ History] Oxygen 2 l NS AD 01/17/17 [History] Aspirin Enteric Coated [Aspirin EC] 325 mg PO DAILY tablet. 01/18/17 [Rx] Nicotine Patch [Nicoderm] 21 mg TD DAILY patch.td24 01/18/17 [Rx] Simvastatin [Zocor] 40 mg PO HS #30 tablet 01/18/17 [Rx] Allergies/Adverse Reactions: Allergies Penicillins [PCN] Allergy (Verified 01/17/17 09:02) Hives albuterol Adverse Reaction (Verified 01/17/17 09:02) Difficulty Breathing ciprofloxacin [From Cipro] Adverse Reaction (Verified 01/17/17 11:05) neuropathy codeine Adverse Reaction (Verified 01/17/17 11:05) See Comments jittery and wired pregabalin [From Lyrica] Adverse Reaction (Verified 01/17/17 11:05) See Comments had a seizure Sulfa (Sulfonamide Antibiotics) Adverse Reaction (Verified 01/17/17 09:02) Swelling of Lip/Tongue/Throat Date of admission: 01/17/17 13:02 Primary care physician: Adelaide Brooks CNP Consults: 01/17/17 14:28 Consult to Apartment Community Assistant Manager [CONS] Routine Reason for SW Consult: Home oxygen through [employer] 01/18/17 15:49 PT [Consult to Physical Therapy] [CONS] Routine Comment: Evaluate, develop and implement POC Reason for Consult: Stroke Discharging clinician: Jaden Vieyra Anticipated date of discharge: 01/18/17 - Patient Status Disposition: Home, Self-Care Overall status at discharge: patient is back to baseline - Discharge Instructions Follow Up With: Adelaide Brooks CNP [Primary Care Provider] - - Diet and Activity Activity: resume usual activities as tolerated Diet: advance to your usual diet Interval History: Aria Panchal is a 71-year-old female came in with right upper extremity paresthesia. Admitting M.D. ordered MRI of the brain echocardiogram and ultrasound of the carotid all tests have returned negative. MRI brain showed small vessel disease while echocardiogram showed normal left ventricular function and EF about 55-60%. MRI did not show any new stroke but did show small vessel disease. Patient is suitable candidate for aspirin 325 mg by mouth daily. Said aspirin Zocor also added as lipid profile is abnormal physical therapy has not recommended any further treatment. Her symptoms have already resolved and his strength is back and on neurological examination her muscular strength in both upper and lower distal and proximal and bilateral extremity is decent. Hospital course: Ms. Panchal is a 71 year old female - Time Spent with Patient Total time spent providing and/or coordinating discharge services: Greater than 30 minutes - Constitutional Vitals: Temp Pulse Resp BP Pulse Ox 98.8 F 88 16 130/74 97 01/18/17 14:57 01/18/17 14:57 01/18/17 14:57 01/18/17 14:57 01/18/17 14:57 General appearance: Present: A&O X 3, no acute distress - Head Head exam: Present: atraumatic, normocephalic - Eye Eye exam: Present: PERRL, conjuntiva pink, sclera anicteric Pupils: Present: PERRL - Neck Neck exam general surgery: Present: supple, trachea midline. Absent: lymphadenopathy - Respiratory Respiratory exam: Present: CTAB. Absent: accessory muscle use, rales, rhonchi, wheezes - Cardiovascular Cardiovascular exam: Present: RRR, +S1, +S2. Absent: diastolic murmur, gallop, rubs, systolic murmur - GI/Abdominal GI/Abdominal exam: Present: normal bowel sounds, soft, no peritoneal signs. Absent: distended, tenderness - Extremities Exam Extremities exam: Present: warm, radial pulses palpable and symetrical. Absent : calf tenderness, cyanotic, pedal edema - Neurological Exam Neurological exam: Present: CN II-XII intact, oriented X3, no focal deficits. Absent: pronater drift, facial droop, speech deficit - Skin Skin exam: Present: dry, intact
[2017-01-19] MEDS ORDERED: Aspirin Enteric Coated 325 MG Tablet PO SCH (09:00)
== END 2017-01-18 18:28 | disposition home or self-care (01) ==
LOC: EMEROO 08:57 → 3NENU 08:57
PROVIDERS: ADMIT Internal Medicine; ATTEND Internal Medicine

== ENCOUNTER 2021-07-07 06:11 | Inpatient (IN) ==
[2021-07-07] MEDS ORDERED: CeFAZolin Syr 2,000MG/20 ML 2,000 MG/20 ML SYRINGE IVPB ONE (06:35)
[2021-07-07] MEDS ORDERED: Ringers Solution, Lactated 1,000 ML IVC SCH (06:45)
[2021-07-07] MEDS ORDERED: Heparin 1,000 UNITS/500 mL 500 ML ONE (07:14)
[2021-07-07] MEDS ORDERED: *HR* Remifentanil 2 MG VIAL IVP ONE (07:15)
[2021-07-07] MEDS ORDERED: Lidocaine -MPF 2% 5 ML VIAL ONE (07:15)
[2021-07-07] MEDS ORDERED: *HR* Rocuronium Bromide 50 MG/5 ML VIAL ONE (07:15)
[2021-07-07] MEDS ORDERED: *HR* Phenylephrine 10 MG/ML VIAL ONE (07:15)
[2021-07-07] MEDS ORDERED: *HR* Succinylcholine 200 MG/10 ML VIAL IVP ONE (07:15)
[2021-07-07] MEDS ORDERED: *HR* Propofol 200 MG/20 ML VIAL IVP ONE (07:16)
[2021-07-07] MEDS ORDERED: *HR* FentaNYL (PF) 100 MCG/2 ML VIAL ONE (07:16)
[2021-07-07] MEDS ORDERED: Heparin 1,000 UNITS/500 mL 1,500 ML ONE (07:17)
[2021-07-07] MEDS ORDERED: Bupivacaine-MPF 0.25% 10 ML VIAL ONE (07:17)
[2021-07-07] MEDS ORDERED: *HR* Heparin 5,000 UNIT/ML VIAL ONE (07:17)
[2021-07-07] MEDS ORDERED: Vancomycin 1,000 MG VIAL ONE (07:18)
[2021-07-07] MEDS ORDERED: *HR* OxyCODONE Immed Rel 5 MG TABLET PO PRN ×2 (07:26→13:57)
[2021-07-07] MEDS ORDERED: *HR* FentaNYL (PF) 100 MCG/2 ML VIAL IVP PRN (07:26)
[2021-07-07] MEDS ORDERED: Ondansetron 4 MG/2 ML VIAL IVP PRN ×2 (07:26→13:57)
[2021-07-07] MEDS ORDERED: Lacri-Lube 3.5 GM TUBE ONE (07:33)
[2021-07-07] MEDS ORDERED: Acetaminophen IV 1,000 MG/100 ML BAG IVPB ONE (07:37)
[2021-07-07] MEDS ORDERED: Vancomycin 1,000 MG, 0.9 % Sodium Chloride 1,000 ML IR ONE (07:45)
[2021-07-07] MEDS ORDERED: Lidocaine HCL 4 ML Topical Solution (Laryng-O-Jet Kit Sterile Pak) TP ONE (08:09)
[2021-07-07] MEDS ORDERED: EPHEDrine 50 MG/ML VIAL ONE (08:33)
[2021-07-07] MEDS ORDERED: Neostigmine Methylsulfate 3 MG/3 ML SYRINGE ONE (11:14)
[2021-07-07] MEDS ORDERED: Ondansetron 4 MG/2 ML VIAL ONE (11:16)
[2021-07-07] MEDS ORDERED: Naloxone 0.4 MG/ML INJ IVP PRN (13:57)
[2021-07-07] MEDS ORDERED: *HR* LORazepam 0.5 MG TABLET PO PRN (13:57)
[2021-07-07] MEDS ORDERED: 0.9 % Sodium Chloride 1,000 ML IVC SCH (13:57)
[2021-07-07] MEDS ORDERED: *HR* Labetalol 20 MG/4 ML SYRINGE IVP PRN (13:57)
[2021-07-07] MEDS ORDERED: Acetaminophen 325 MG TABLET PO PRN (13:57)
[2021-07-07] MEDS ORDERED: tiZANidine 4 MG TABLET PO PRN (13:57)
[2021-07-07] MEDS ORDERED: NON-FORMULARY MEDICATION 1 EACH EACH (Oxygen 1 EACH Each) NS SCH (13:57)
[2021-07-07] MEDS ORDERED: CeFAZolin 2 GM/120 ML BAG IVPB SCH (14:30)
[2021-07-07] MEDS: Simethicone 80 MG TAB.CHEW PO SCH (14:50)
[2021-07-07] MEDS: Aspirin Enteric Coated 81 MG Tablet PO SCH (14:50)
[2021-07-07] MEDS: *HR* Metoprolol 5 MG/5 ML VIAL IVP SCH ×3 (14:52→22:34)
[2021-07-07] MEDS: Patient Taking Own Medication 1 EACH PO SCH (14:52)
[2021-07-07] MEDS: CeFAZolin 2 GM/120 ML BAG IVPB SCH (16:45)
[2021-07-07] MEDS ORDERED: 0.9 % Sodium Chloride 500 ML IVC ONE (16:49)
[2021-07-07] MEDS ORDERED: Albumin Human 5% 12.5 GM/250 ML IV.SOLN IVPB ONE (21:30)
[2021-07-08] MEDS: CeFAZolin 2 GM/120 ML BAG IVPB SCH (01:15)
[2021-07-08] MEDS: *HR* Metoprolol 5 MG/5 ML VIAL IVP SCH ×5 (03:46→23:46)
[2021-07-08] MEDS: 0.9 % Sodium Chloride 1,000 ML IVC SCH ×3 (03:48→17:49)
[2021-07-08 04:46] LABS: Basophils % 0.2 %; Eosinophils # 0.1 K/mcL (0.0-0.6); Eosinophils % 1.6 %; Hematocrit 23.3 % (35.3-44.9); Hemoglobin 6.8 g/dL (11.5-15.4); Immature Granulocytes % 0.3 % (0-4); Lymphocytes # 1.3 K/mcL (0.6-4.6); Lymphocytes % 14.3 %; Mean Corpuscular HGB Conc 29.2 g/dL (31.6-35.5); Mean Corpuscular Hemoglobin 24.6 pg (28.0-33.3); Mean Corpuscular Volume 84.4 fL (83.0-100.0); Monocytes # 0.7 K/mcL (0.0-1.3); Monocytes % 7.4 %; Neutrophils # 6.8 K/mcL (1.6-8.9); Platelet Count 300 K/mcL (140-400); Red Blood Count 2.76 M/mcL (3.82-4.97); Red Cell Distribution Width 15.4 % (11.5-14.5); Segmented Neutrophils % 76.2 %; White Blood Count 8.9 K/mcL (4.3-11.1)
[2021-07-08 04:59] LABS: BUN/Creatinine Ratio 14 (6-26); Blood Urea Nitrogen 14 mg/dL (8-23); Calcium 7.6 mg/dL (8.6-10.3); Carbon Dioxide 27 mEq/L (23-29); Chloride 108 mEq/L (98-107); Glucose 115 mg/dL (70-105); Osmolality,Calculated 287 (280-300); Potassium 4.2 mEq/L (3.5-5.1); Sodium 138 mEq/L (136-145); eGFR For African Americans > 60 (> 60); eGFR For Non-African Americans 52 (> 60)
[2021-07-08] MEDS: *HR* Heparin 5,000 UNIT/ML VIAL SQ SCH ×2 (05:41→17:00)
[2021-07-08] MEDS ORDERED: Ketorolac 30 MG/ML VIAL IVP PRN (05:56)
[2021-07-08] MEDS ORDERED: *HR* Heparin 5,000 UNIT/ML VIAL SQ SCH (06:00)
[2021-07-08] MEDS ORDERED: 0.9 % Sodium Chloride 250 ML ONE (06:23)
[2021-07-08] MEDS: Patient Taking Own Medication 1 EACH PO SCH (08:10)
[2021-07-08] MEDS: Aspirin Enteric Coated 81 MG Tablet PO SCH (08:10)
[2021-07-08] MEDS: Simethicone 80 MG TAB.CHEW PO SCH (08:10)
[2021-07-08] MEDS: *HR* HYDROcodone/Acet 5/325 mg TABLET PO PRN ×2 (11:48→17:49)
[2021-07-09 02:15] LABS: Basophils # 0.1 K/mcL (0.0-0.2); Basophils % 0.5 %; Eosinophils # 0.2 K/mcL (0.0-0.6); Eosinophils % 2.3 %; Hemoglobin 7.9 g/dL (11.5-15.4); Immature Granulocytes % 0.3 % (0-4); Lymphocytes # 2.1 K/mcL (0.6-4.6); Lymphocytes % 20.2 %; Mean Corpuscular HGB Conc 31.6 g/dL (31.6-35.5); Mean Corpuscular Hemoglobin 26.5 pg (28.0-33.3); Mean Corpuscular Volume 83.9 fL (83.0-100.0); Mean Platelet Volume 10.8 fL (9.4-12.4); Monocytes # 0.9 K/mcL (0.0-1.3); Monocytes % 8.9 %; Neutrophils # 6.9 K/mcL (1.6-8.9); Platelet Count 279 K/mcL (140-400); Red Blood Count 2.98 M/mcL (3.82-4.97); Segmented Neutrophils % 67.8 %; White Blood Count 10.2 K/mcL (4.3-11.1)
[2021-07-09] MEDS: *HR* HYDROcodone/Acet 5/325 mg TABLET PO PRN ×3 (03:18→20:24)
[2021-07-09] MEDS: 0.9 % Sodium Chloride 1,000 ML IVC SCH ×2 (03:49→14:19)
[2021-07-09] MEDS: *HR* Heparin 5,000 UNIT/ML VIAL SQ SCH ×2 (05:02→17:13)
[2021-07-09] MEDS: *HR* Metoprolol 5 MG/5 ML VIAL IVP SCH ×4 (05:02→23:02)
[2021-07-09] MEDS: Simethicone 80 MG TAB.CHEW PO SCH (07:55)
[2021-07-09] MEDS: Aspirin Enteric Coated 81 MG Tablet PO SCH (07:55)
[2021-07-09] MEDS: Patient Taking Own Medication 1 EACH PO SCH (07:56)
[2021-07-10] MEDS: *HR* Heparin 5,000 UNIT/ML VIAL SQ SCH (05:47)
[2021-07-10] MEDS: 0.9 % Sodium Chloride 1,000 ML IVC SCH (05:47)
[2021-07-10] MEDS: *HR* Metoprolol 5 MG/5 ML VIAL IVP SCH (05:48)
[2021-07-10 06:51] VITALS: BP 130/53; PULSE 69; TEMP 97.7; O2SAT 99
[2021-07-10] MEDS: Simethicone 80 MG TAB.CHEW PO SCH (10:30)
[2021-07-10] MEDS: Aspirin Enteric Coated 81 MG Tablet PO SCH (10:31)
[2021-07-10] MEDS: *HR* HYDROcodone/Acet 5/325 mg TABLET PO PRN (10:31)
== END 2021-07-10 11:40 | disposition home or self-care (01) | DRG 254 ==
LOC: SAMDAY 06:11 → 2NNU 07:22
PROVIDERS: ADMIT Surgery; ATTEND Surgery